=== PATIENT | female | born 1970 | race Caucasian/White ===

== ENCOUNTER → 2016-09-22 | Outpatient (CLI) | payer BC | LOC: MC.RAD 08:33 | DX: Z12.31 Encounter for screening mammogram for malignant neoplasm of breast (principal) ==

== ENCOUNTER → 2016-11-23 | Outpatient (CLI) | payer BC | LOC: COL.RAD 15:20 | DX: N83.201 Unspecified ovarian cyst, right side (principal); N83.202 Unspecified ovarian cyst, left side; N85.2 Hypertrophy of uterus ==

== ENCOUNTER → 2018-02-26 | Outpatient (CLI) | payer BC | LOC: MC.RAD 13:37 | DX: Z12.31 Encounter for screening mammogram for malignant neoplasm of breast (principal) ==